=== PATIENT | male | born 1990 | race Hispanic/Latino ===

== ENCOUNTER 2018-07-06 14:51 | Outpatient (CLI) | payer BC ==
--- NOTE | 2018-07-06 17:36 | RAD ---
LUMBAR SPINE FOUR VIEWS INCLUDING FLEXION AND EXTENSION VIEWS: 07/06/2018 HISTORY: Spondylolisthesis of the lumbar region. The patient complains of low back pain with pain radiating d own both legs, greater on the right. FINDINGS: There are five [id number] lumbar type vertebral bodies. there is grade 1 to 2 anterolisthesis o f L5 on S1, with evidence of bilateral pars defects. The degree of anterolisthesis measures approxim ately 13 to 14 mm, and there is no significant abnormal translational motion seen between flexion and extension views of the lumbar spine. There is loss of intervertebral disk height at the lumbosacral junction. The remaining intervertebral disk spaces and vertebral body heights are within normal alvarenga its. No fracture is seen. IMPRESSION: Spondylolisthesis at the lumbosacral junction with grade 1 to 2 anterolisthesis of L5 on S1. No sign ificant abnormal translational motion is present between flexion and extension views. POS: [facility]
--- NOTE | 2018-07-06 18:03 | MRI ---
MRI LUMBAR SPINE NONCONTRAST: 07/06/2018 HISTORY: Spondylolisthesis of the lumbar region. The patient complains of low back pain with pain radiating d own both legs, greater on the right. FINDINGS: Retroperitoneal structures demonstrate a normal nonenhanced MRI appearance. There are bilateral pars defects at L5 with grade 1 anterolisthesis of L5 on S1. The degree of listh esis measures approximately 10 mm, although measurement was greater on radiographs of the lumbar spin e also obtained on this date. Endplate degenerative changes are seen at the lumbosacral junction. Normal signal intensity is demon strated throughout the remainder of the bone marrow. The conus medullaris is normal in appearance and terminates at the L1-L2 level. L1-L2: There is no disk bulge or disk herniation. The central spinal canal and neural foramina are patent. L2-L3: There is a mild disk osteophyte complex, resulting in slight flattening at the anterior aspec t of the thecal sac. The neural foramina are widely patent. L3-L4: There is no disk bulge or disk herniation. The central spinal canal and neural foramina are patent. L4-L5: There is a minimal disk osteophyte complex with central disk protrusion. Facet degenerative changes are present at this level. There is no significant narrowing of the central spinal canal, an d the neural foramina are patent at this level. L5-S1: As noted above, there is grade 1 anterolisthesis of L5 on S1. Endplate degenerative changes are present. There is loss of intervertebral disk height. While there is unroofing of the intervert ebral disk, there is not significant disk bulge present. However, due to the anterolisthesis, there is severe bilateral neural foraminal narrowing. There are facet degenerative changes at this level. IMPRESSION: 1. Spondylolisthesis at the lumbosacral junction, resulting in severe bilateral neural foraminal mesha rowing, greater on the left. 2. Mild disk degenerative change at the L2-L3 and L4-L5 levels. POS: [facility]
== END 2018-07-06 14:52 | disposition home or self-care (01) ==
LOC: TBSIIMAG 14:51
PROVIDERS: ATTEND Neurological Surgery
DX: M43.16 Spondylolisthesis, lumbar region (principal); M43.17 Spondylolisthesis, lumbosacral region; M48.07 Spinal stenosis, lumbosacral region; M51.36 Other intervertebral disc degeneration, lumbar region
CPT/HCPCS: 72110; 72148

== ENCOUNTER 2018-12-24 09:26 | Day surgery (SDC) | payer BC ==
[2018-12-21 11:22] VITALS: BMI 29.8
[2018-12-24 09:53] LABS: #Basophils 0.1 thou/uL (0.0-0.2); #Eosinphils 0.6 thou/uL (0.0-0.7); #Lymphocytes 3.3 thou/uL (1.20-3.40); #Monocytes 0.8 thou/uL (0.11-0.59); %Basophils 0.5 % (0.0-1.0); %Eosinophils 5.4 % (0.0-10.0); %Lymphocytes 30.7 % (21.0-51.0); %Monocytes 7.3 % (0.0-10.0); %Neutrophils 56.1 % (42.0-75.0); Hemoglobin 14.8 g/dL (14.0-18.0); Mean Corpuscular HGB CONC 32.9 g/dL (32.0-36.0); Mean Corpuscular Hemoglobin 29.4 pg (27.0-31.0); Mean Corpuscular Volume 89.3 fL (78.0-98.0); Mean Platelet Volume 8.3 fL (7.4-10.4); Platelet Count 257 thou/uL (130-400); Red Blood Cell (RBC) Count 5.03 mill/uL (4.70-6.10); White Blood Cell (WBC) Count 10.7 thou/uL (4.8-10.8)
[2018-12-24] MEDS ORDERED: Glycopyrrolate 0.2 MG/ML 5 ML SYRINGE ONE ×2 (10:39→11:36)
[2018-12-24] MEDS ORDERED: Rocuronium Bromide 50 MG/5 ML VIAL ONE (10:39)
[2018-12-24] MEDS ORDERED: Lidocaine 1% PF 5 ML VIAL ONE ×2 (10:39→11:36)
[2018-12-24] MEDS ORDERED: PROPOFOL 20 ML ONE ×2 (10:39→11:49)
[2018-12-24] MEDS ORDERED: Ondansetron PF 4 MG/2 ML Vial ONE ×2 (10:39→11:36)
[2018-12-24] MEDS ORDERED: Dexamethasone 20 MG/5 ML VIAL ONE ×2 (10:39→11:36)
[2018-12-24 10:40] LABS: Anion Gap 14 mmol/L (10-20); BUN (Urea Nitrogen) 16 mg/dL (8.9-20.6); Calc. Creatinine Clearance 128 mL/min (70-130); Calcium 9.7 mg/dL (7.8-10.44); Carbon Dioxide 25 mmol/L (22-29); Chloride 105 mmol/L (98-107); Estimated GFR-MDRD 87; Glucose 96 mg/dL (70-105); Potassium 4.2 mmol/L (3.5-5.1); Sodium 140 mmol/L (136-145)
[2018-12-24] MEDS ORDERED: Bacitracin Zinc Ointment 30 gm TUBE ONE (10:53)
[2018-12-24] MEDS ORDERED: Thrombin 5000 UNITS/5 ML VIAL ONE (10:53)
[2018-12-24] MEDS ORDERED: Sodium Chloride 0.9% 10 ML ONE (10:53)
[2018-12-24] MEDS ORDERED: Midazolam HCl 2 mg/2 ml Vial ONE (11:05)
[2018-12-24] MEDS ORDERED: Fentanyl 100 MCG/2 ML VIAL ONE ×2 (11:14→13:14)
[2018-12-24] MEDS ORDERED: Rocuronium Bromide 10 MG/ML (10ML VIAL) ONE (11:36)
[2018-12-24] MEDS ORDERED: PROPOFOL 200 MG/20 ML VIAL ONE (11:36)
[2018-12-24] MEDS ORDERED: Phenylephrine HCL 10 MG/ML VIAL ONE (11:36)
[2018-12-24] MEDS ORDERED: HYDROcodone/Acetaminophen 5/325 mg Tablet ONE (15:56)
--- NOTE | 2018-12-24 18:25 | OP ---
DATE OF PROCEDURE: 12/24/2018 MATERIAL LIAISON: PROCEDURES PERFORMED: L5-S1 decompressive laminectomy, posterolateral arthrodesis, pedicle screw instrumentation of L5-S1, demineralized bone matrix and local morselized autograft. DESCRIPTION OF PROCEDURE: The patient was brought to the operating room and intubated. He was rolled in a prone position on gel-filled chest rolls. An incision was made exposing the L5-S1 and the level was confirmed by x-ray. The obvious L5 pars defects were identified bilaterally and modest decompression was performed. We next placed pedicle screws at L5 and S1 bilaterally using lateral fluoroscopic guidance and the position was confirmed with rotational x-ray. Rods were secured between the screws, and using the rods, we obtained some reduction and some distraction on both sides. The nuts were secured to the rods, which were final tightened. The wound was then extensively irrigated and MAC hemostasis was secured. A combination of demineralized bone matrix and local morselized autograft was laid over the lamina and posterolateral surfaces for the purpose of arthrodesis. Vancomycin powder was applied and the wound was closed in anatomic layers. Job ID: [id number]
== END 2018-12-24 16:20 | disposition home or self-care (01) ==
LOC: SDC 09:26
PROVIDERS: ATTEND Neurological Surgery
PROC: 0SG3071 Fusion of Lumbosacral Joint with Autologous Tissue Substitute, Posterior Approach, Posterior Column, Open Approach (ICD-10-PCS; principal; 2018-12-24)
PROC: 0SB40ZZ Excision of Lumbosacral Disc, Open Approach (ICD-10-PCS; principal; 2018-12-24)
DX: M43.17 Spondylolisthesis, lumbosacral region (principal)
CPT/HCPCS: 36415; 76000; 80048; 85025; 93005; 93010; C1713; C1768; J0131; J0690; J1100; J2001; J2250; J2370; J2405; J2704; J3010; J3370; J3490

== ENCOUNTER 2019-01-09 10:11 | Outpatient (CLI) | payer BC ==
--- NOTE | 2019-01-09 10:53 | RAD ---
LUMBAR SPINE 2 VIEWS: HISTORY: Spondylolisthesis. Back pain. COMPARISON: 07/06/2018. FINDINGS: Pedicle screws and rods are now seen in place at L5-S1. There continues to be a grade II spondylolis thesis at L5-S1 with loss of disk space. The other disk spaces are preserved. Alignment is otherwis e maintained. No significant degenerative change. IMPRESSION: Spondylolisthesis with disk narrowing at L5-S1 again noted. Pedicle screws at L5-S1 have been placed since the prior exam. POS: [facility]
== END 2019-01-09 10:12 | disposition home or self-care (01) ==
LOC: TBSIIMAG 10:11
PROVIDERS: ATTEND Physician Assistant
DX: M43.17 Spondylolisthesis, lumbosacral region (principal); M51.37 Other intervertebral disc degeneration, lumbosacral region; Z98.890 Other specified postprocedural states
CPT/HCPCS: 72100

== ENCOUNTER 2019-02-21 14:20 | Outpatient (CLI) | payer BC ==
--- NOTE | 2019-02-21 14:39 | RAD ---
TWO VIEWS LUMBAR SPINE: History: Follow up surgery. Lumbar radiculopathy. Comparison: 01-09-19 FINDINGS: Again noted are post-surgical changes related to posterior fusion at the lumbosacral junction with bi pedicular screws and posterior rods again transfixing this level. Grade II spondylolisthesis of L5 on S1 is again seen with loss of intervertebral disc height. Remaining intervertebral disc spaces as we ll as vertebral body heights are within normal limits. No fracture is seen, and there is no additiona l level of subluxation. Views of the lumbar spine are stable compared to prior exam. IMPRESSION: 1. Stable post-operative changes with posterior fusion at the lumbosacral junction. There is stable g rade II anterolisthesis of L5 on S1. POS: [facility]
== END 2019-02-21 14:21 | disposition home or self-care (01) ==
LOC: TBSIIMAG 14:20
PROVIDERS: ATTEND Neurological Surgery
DX: M54.16 Radiculopathy, lumbar region (principal); M43.17 Spondylolisthesis, lumbosacral region; Z98.1 Arthrodesis status
CPT/HCPCS: 72100